=== PATIENT | female | born 1995 | race African-American/Black ===

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

== ENCOUNTER 2017-01-09 16:16 | Emergency (ER) | payer OTHER ==
[~2017-01-09] VITALS: Ht 167.6 cm; Wt 64.4 kg
[~2017-01-09 16:16] MED LIST changes: +BACLOFEN10 M1 PO; +PERCOCET 5-3251 EACH PO
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
[2017-01-09 18:55] VITALS: BP 150/63
[2017-01-09] MEDS ORDERED: TYLENOL EXTRA500 M2 PO (19:31)
== END 2017-01-09 19:29 ==
LOC: ERH 16:16
DX: M25.561 Pain in right knee (principal)

== ENCOUNTER 2017-02-02 20:10 | Emergency (ER) | payer OTHER ==
[~2017-02-02] VITALS: Ht 167.6 cm; Wt 81.6 kg
[~2017-02-02 20:10] MED LIST changes: +TYLENOL EXTRA500 M2 PO
[2017-02-02 20:16] VITALS: BP 128/77
--- NOTE | 2017-02-02 20:45 | ED GI/GU/ABDOMINAL COMPLAINT ---
History of Present Illness General Chief Complaint: Female Urogenital Problems Stated Complaint: PELVIC PAIN X 2 MONTHS Source: patient Exam Limitations: no limitations Vital Signs & Intake/Output Vital Signs & Intake/Output Vital Signs Date Time Temp Pulse Resp B/P B/P Pulse O2 O2 Flow FiO2 Mean Ox Delivery Rate 02/020 97 Room Air 02/03 2016 98.5 91 18 128/77 96 Room Air Allergies Coded Allergies: aspirin (Severe, FACE HURTS, THROAT "CLOGS" 05/21/16) ibuprofen (VOMITING, FACE HURTS, THROAT "CLOGS" 05/21/16) Reconcile Medications Acetaminophen (Tylenol Extra Strength) 500 MG TABLET 1 TAB PO Q6-8 KNEE PAIN Albuterol Sulfate (Proair Hfa) 0.09 MG/Actuation PIERRE 2 PUFF INH PRN ASTHMA ( Reported) Albuterol Sulfate (Proventil Hfa) 90 MCG HFA.AER.AD 2 PUF INH Q4 COUGH Azithromycin (Zithromax) 250 MG TABLET 1 DP PO AD SINUSITIS 2 the first day followed by 1 for days 2-5 Baclofen 10 MG TABLET 1 TAB PO TIDPRN PRN muscle spasm/strain Benzonatate 200 MG CAPSULE 1 CAP PO TIDPRN cough Cyclobenzaprine HCl 10 MG TABLET 1 TAB PO 4 TIMES/DAY PRN MUSCLE SPASM Hydrocodone/Acetaminophen (Vicodin 5-300 MG Tablet) 1 EACH TABLET 1-2 TAB PO Q6P PRN PAIN Ondansetron (Zofran Odt) 4 MG TAB.RAPDIS 1 TAB SL TID NAUSEA Oxycodone HCl/Acetaminophen (Percocet 5-325 MG Tablet) 5 MG-325 MG TABLET 1 TAB PO Q6PRN PRN severe pain Tramadol HCl 50 MG TABLET 1 TAB PO TID PRN PAIN thirty...[id number] Tramadol HCl 50 MG TABLET 1 TAB PO BIDP PRN PAIN Triage Note: PT TO TRIAGE WITH PELVIC PAIN 03/16 [id number], ALSO PAINFUL BREAST, PT DENIES URINARY S/S, DENIES N/V/D, DENIES CP,SOB. VSS. AFEBRILE IN TRIAGE. Triage Nurses Notes Reviewed? yes LMP (ages 10-50): date (3 weeks) ? n Is pt currently ? No Onset: Abrupt Duration: week(s): (2), continues in ED, getting worse Timing: single episode today Quality/Severity: moderate, stabbing Severity Numbers: 8 Location: suprapubic, vaginal Radiation: no radiation Activities at Onset: none Prior Abdominal Problems: none Past Sexual History: Unobtainable at this time Sexually Active: Yes Last Time You Were Sexual: less than 2 months ago Use of Protection: No No Modifying Factors: none Associated Symptoms: abdominal pain HPI: 21-year-old female with no sign of any past medical history presents complaining of pelvic and vaginal pain for the past 2 weeks. Patient reports that the pain is located inside of her vagina and is described as sharp and stabbing. She rates the pain as an 8 out of 10 and has not taken any medicine for the pain. She reports that the pain is constant and there is no alleviating or aggravating factors. Pain is not affected by sex she is sexualy active with men. She denies any vaginal bleeding, vaginal discharge, abdominal pain, back pain, urinary symptoms, fevers, nausea, vomiting or any other associated symptoms. Last menstrual period was 3 weeks ago. (CHONG OLIVERA PA-C) Past History Travel History Traveled to [place] past 21 day No Medical History Any Pertinent Medical History? 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 Yes (CHONG OLIVERA PA-C) Review of Systems Review of Systems Constitutional: Reports: no symptoms. EENTM: Reports: no symptoms. Respiratory: Reports: no symptoms. Cardiovascular: Reports: no symptoms. GI: Reports: see HPI, abdominal pain. Genitourinary: Reports: see HPI, pain (vaginal ). Musculoskeletal: Reports: no symptoms. Skin: Reports: no symptoms. Neurological/Psychological: Reports: no symptoms. Hematologic/Endocrine: Reports: no symptoms. Immunologic/Allergic: Reports: no symptoms. All Other Systems: Reviewed and Negative (CHONG OLIVERA PA-C) Physical Exam Physical Exam Gastrointestinal: normal bowel sounds, soft, tenderness (suprapubic) Comments: General: Hemodynamically stable. Afebrile. Well-developed well-nourished person in no acute distress. Head: Atraumatic, normocephalic Eyes: EOMI bilaterally, PERRLA, conjunctiva are not injected, no discharge, no nystagmus, fundus grossly normal bilaterally Nose: Atraumatic, no rhinorrhea, mucosa is not erythematous, no epistaxis. Sinuses are non-tender Ears: TM pearly mireles color bilaterally, external canal is clear, no discharge, hearing is normal Mouth: Appropriate dentition, no gingival bleeding, moist mucus membranes, no oral lesions, tonsils not erythematous or enlarged and free of exudate. Uvula rises midline. Neck: Supple, full active ROM, no lymphadenopathy, no midline tenderness to palpation, no thyromegaly, no tracheal deviation. Back: Non-tender, full active ROM, no scoliosis, no CVA tenderness Cardiovascular: regular rate and rhythm, no murmurs, rubs, or gallops. No JVD Respiratory: Chest is nontender. Regular respiratory rate and effort. No accessory muscle use. Lungs clear to auscultation bilaterally. Extremities: No edema. No gross deformities. No joint swelling. No calf swelling or tenderness. Full active and passive ROM. Strength 5/5 in upper and lower extremities. Peripheral pulses 2+ bilaterally, Patellar DTR 2+ Neuro: No confusion. Motor and sensory function is intact. Appropriate gait. Cerebellar function intact. Skin: Warm and dry. Appropriate turgor. No lesions or bruising. No appreciable rash on exposed skin. Core Measures ACS in differential dx? No Severe Sepsis Present: No Septic Shock Present: No (JAROD LOWERY,CHONG) Progress Differential Diagnosis: appendicitis, diverticulitis, ectopic , endometritis, kidney stone, ovarian cyst, ovarian torsion, PID/cervicitis, threatened AB, UTI/pyelo Plan of Care: Orders Procedure Date/time Status URINE 02/02 2013 Complete URINALYSIS 02/03 2012 Complete Laboratory Tests 02/02/172024: Urine Test NEGATIVE 02/02/172024: Urine Color YEL, Urine Clarity HAZY H, Urine pH 6.0, Ur Specific [place] >= 1.030, Urine Protein TRACE H, Urine Ketones TRACE H, Urine Nitrite NEG, Urine Bilirubin NEG, Urine Urobilinogen 0.2, Ur Leukocyte Esterase NEG, Ur Microscopic SEDIMENT EXAMINED, Urine RBC RARE, Ur Epithelial Cells MANY H, Urine Bacteria MOD H, Urine Mucus MOD H, Urine Hemoglobin TRACE-LYSED, Urine Glucose NEG Patient has tenderness palpation to suprapubic area. She reports pain in inside of her vagina. Patient will have a pelvic exam for further evaluation. Urine is not showing any signs of infection. Urine is negative. 9:33 PM: Patient left AGAINST MEDICAL ADVICE before pelvic exam could be performed. Discussed with patient potential risks of not doing pelvic exam. Patient understands the risks and reports she'll follow-up with her primary care doctor on Monday. Discussed return precautions in detail. Explained risks to patient she signed an AMA form and she left. Patient did not want any prescriptions or discharge instructions. (CHONG OLIVERA PA-C) Initial ED EKG: none (CHONG OLIVERA PA-C) Departure Departure Disposition: LEFT AGAINST MEDICAL ADVICE Condition: Stable Clinical Impression Primary Impression: Pelvic pain Referrals: MALLIKA BECKER APRN (PCP/Family) Departure Forms: Customer Survey General Discharge Information (CHONG OLIVERA PA-C) PA/GAME TESTER Co-Sign Statement Statement: ED Attending supervision documentation- I saw and evaluated the patient. I have also reviewed all the pertinent lab results and diagnostic results. I agree with the findings and the plan of care as documented in the PA's/GAME TESTER's documentation. x I have reviewed the ED Record and agree with the PA's/GAME TESTER's documentation. [] Additions or exceptions (if any) to the PAs/GAME TESTER's note and plan are summarized below: [] (CELESTINA DUARTE,TANISHA)
== END 2017-02-02 21:44 | disposition left against medical advice (07) ==
LOC: ERH 20:10
DX: R10.2 Pelvic and perineal pain (principal)
CPT/HCPCS: 81001; 81025